=== PATIENT | female | born 1965 | race African-American/Black ===

== ENCOUNTER 2017-03-01 11:21 | Emergency (ER) | payer MEDICAID ==
[~2017-03-01] VITALS: Ht 170.2 cm; Wt 73.0 kg
[2017-03-01 12:28] LABS: BASOPHILS % 0.9 % (0.0-2.0); EOSINOPHILS % 3.3 % (0.0-5.0); HEMATOCRIT. 38.4 % (36.0-48.0); HEMOGLOBIN. 12.4 g/dL (12.0-16.0); LYMPHOCYTES % 50.8 % (20.0-50.0); MEAN CORPUSCULAR HEMOGLOBIN 26.8 pg (28.0-32.0); MEAN CORPUSCULAR VOLUME 82.8 fL (81.0-99.0); MEAN PLATELET VOLUME 7.8 fl (7.4-10.4); MONOCYTES % 7.9 % (2.0-8.0); NEUTROPHILS % 37.1 % (40.0-76.0); PLATELET 371 x1000/uL (130-400); RED BLOOD CELL COUNT 4.64 mill/uL (4.2-5.4); RED CELL DISTRIBUTION WIDTH 15.4 % (11.6-14.6)
[2017-03-01 12:35] LABS: INR 1.1; PROTHROMBIN TIME 10.9 sec (9.4-11.6)
[2017-03-01 12:44] LABS: CARBON DIOXIDE 27 mEq/L (21-32); CHLORIDE 107 mEq/L (98-107); TROPONIN I < 0.02 ng/mL (0.00-0.04)
[2017-03-01 16:39] VITALS: BP 141/67
== END 2017-03-01 17:55 | disposition home or self-care (01) ==
LOC: ER 11:27 → CANBEDREQ 03-02 02:44
DX: R07.89 Other chest pain (principal); I10 Essential (primary) hypertension; E78.00 Pure hypercholesterolemia, unspecified; E87.6 Hypokalemia; Z88.5 Allergy status to narcotic agent; Z91.013 Allergy to seafood
CPT/HCPCS: 36415; 71045; 80053; 83880; 84484; 85025; 85610; 93005; 99285

== ENCOUNTER 2017-04-29 22:36 | Emergency (ER) | payer MEDICAID ==
[~2017-04-29] VITALS: Ht 170.2 cm; Wt 77.0 kg
[2017-04-29 22:42] VITALS: BP 155/93
[2017-05-02] MEDS ORDERED: ATOR10TA69 PO (11:03)
[2017-05-02] MEDS ORDERED: METO25TA6 PO (11:05)
[2017-05-02] MEDS ORDERED: LISI2.5T47 PO (11:05)
[2017-05-02] MEDS ORDERED: ASPI-1158 PO (11:05)
[2017-05-02] MEDS ORDERED: ISOS30TA6 PO (11:05)
== END 2017-04-30 03:30 | disposition left against medical advice (07) ==
LOC: EDBD → ER 22:36
DX: R07.9 Chest pain, unspecified (principal); Z53.21 Procedure and treatment not carried out due to patient leaving prior to being seen by health care provider
CPT/HCPCS: 93005